=== PATIENT | female | born 1995 | race Caucasian/White ===

== ENCOUNTER 2016-11-17 06:00 | Inpatient (IN) | payer MEDICAID ==
--- NOTE | ~2016-11-17 | HP ---
Unit #: [id number] #: [id number] Patient: CORRIE STEINBERG [id number] [place] [address] [id number] MR#: [id number] NAME: CORRIE STEINBERG. ROOM: P261 Age: 21 Sex: F Admission Date: 11/17/2016 : 1995 Attending Physician: eFlipe Roper M.D. Admitting Physician: Felipe Roper M.D. Primary Care Physician: Primary Care Physician No HISTORY AND PHYSICAL HISTORY OF PRESENT ILLNESS Corrie is a 21 year old admitted to [address] [place] [address] with depression. PAST MEDICAL HISTORY Nothing significant. PAST SURGICAL HISTORY Nothing reported. ALLERGIES No known drug allergies. SOCIAL HISTORY Smokes 1 pack per day. Drinks a pint of liquor 4 to 5 times a month and denies illicit drug use. FAMILY HISTORY Medically noncontributory. REVIEW OF SYSTEMS CONSTITUTIONAL: No fever or chills. HEENT: Denies any sore throat, ear pain or runny nose. CARDIOVASCULAR: Denies chest pain, irregular heart rhythm or palpitations. CHEST: Denies shortness of breath or cough. No hemoptysis. GASTROINTESTINAL: Denies nausea, vomiting, diarrhea or chronic constipation. ENDOCRINE: Denies history of increased thirst or urination. No recent significant weight loss or gain. GENITOURINARY: Denies dysuria, frequency, or hematuria. SKIN: Denies any rashes. HEMATOLOGIC: Denies history of increased bleeding or bruising. MUSCULOSKELETAL: Denies any hot, swollen joints. No generalized muscle pain. NEUROLOGIC: Denies problems with vision or speech. No frequent, severe headaches. No numbness, tingling or weakness in any extremities. Denies loss of bladder or bowel control. CURRENT MEDICATIONS 1. Zoloft 25 mg daily. 2. Nicotine patch 14 mg daily. 3. Melatonin 6 mg q.h.s. p.r.n. 4. Milk of Magnesia p.r.n. 5. Maalox p.r.n. Unit #: [id number] #: [id number] Patient: CORRIE STEINBERG 6. Tylenol p.r.n. PHYSICAL EXAMINATION GENERAL: Alert, well-nourished, no apparent distress. VITAL SIGNS: Blood pressure 100/52, heart rate 80, respirations 16, temperature 98.6. WEIGHT: 103. HEIGHT: 5 feet 2 inches. SKIN: Warm and dry without rash or lesion. HEENT: Normocephalic. TMs not viewed. Oral and nasal passages clear. Conjunctivae clear. PERRLA. EOMs intact. NECK: Supple without lymphadenopathy or thyromegaly. HEART: Regular rate and rhythm without murmur. LUNGS: Clear. ABDOMEN: Soft, nontender. : Not done. EXTREMITIES: No evidence of cyanosis, clubbing or edema. Moves all without focal deficit. NEUROLOGICAL: Grossly within normal limits. Cranial Nerves: II: Visual paredes are intact. III, IV AND : Extraocular movements are intact. Pupils are equal, round and reactive to light. V: Facial sensation is grossly normal. VII: Facial movements and expression are normal. VIII: Auditory acuity grossly intact. IX, X: Uvula is midline. Phonation is normal. XI: Patient shrugs shoulders and turns head normally. XII: Tongue protrudes in the midline. Sensory and Motor Function: Sensory and motor sensation is grossly normal. Motor: moves all extremities well. Coordination: Gait is normal. Deep Tendon Reflexes: Intact. IMPRESSION Psychiatric admission. RECOMMENDATIONS PSYCHIATRIC: Per psychiatrist. MEDICAL: See no contraindications to participate in facility's activities. MEDICAL PROGNOSIS Good. MEDICAL CONDITION Stable. Dictated by... Julee Waggoner P.A.-C. for Norma Sims/ketty TD: 11/18/2016 16:59 JOB #: [id number] Unit #: [id number] #: [id number] Patient: CORRIE STEINBERG HISTORY AND PHYSICAL Page 1 of 1 X Julee Waggoner HISTORY AND PHYSICAL
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
--- NOTE | ~2016-11-17 | DS ---
Unit #: [id number] #: [id number] Patient: CORRIE STEINBERG [id number] [facility] [address] [place] [address] [id number] I MR#: [id number] NAME: CORRIE STEINBERG. ROOM: P261 Age: 21 Sex: F Admission Date: 11/17/2016 : 1995 Discharge Date: 11/22/2016 Attending Physician: Felipe Roper M.D. Primary Care Physician: No Primary Care Physician DISCHARGE SUMMARY ADDENDUM The patient's discharge was postponed secondary to lack of transportation to [place]. Transportation was arranged for the patient on 11/22/2016. Discharge ordered at that time. FOLLOWUP Followup will take place through the auspices of [facility] in the [place], [place] area. Dictated by... Felipe Roper M.D. CB/gz TD: 11/22/2016 14:17 JOB #: [id number] DISCHARGE SUMMARY Page 1 of 1 X Felipe Roper MD X DISCHARGE SUMMARY
--- NOTE | ~2016-11-17 | DS ---
Unit #: [id number] #: [id number] Patient: CORRIE STEINBERG [id number] [facility] [address] [place] [address] [id number] I MR#: [id number] NAME: CORRIE STEINBERG. ROOM: [facility] Age: 21 Sex: F Admission Date: 11/17/2016 : 1995 Discharge Date: Attending Physician: Felipe Roper M.D. Primary Care Physician: Primary Care Physician No DISCHARGE SUMMARY REASON FOR ADMISSION The patient is a 29-year-old white female, admitted in transfer from [facility] where she had presented with voicing suicidal ideation. HOSPITAL COURSE The patient was admitted to the [address] [place] [address] unit and placed on suicide precautions. When seen by this physician on 11/18/2016, the patient was in bright spirits and denied suicidal ideation. She requested discharge from the hospital. She was agreeable to medication change from Paxil to Zoloft given concerns about the potential for defects with paroxetine and a woman of childbearing age. Discharge was ordered as per the patient's request to take place the following day with followup to take place through the auspices of community mental health resources in the [facility]. FINAL DIAGNOSES Major depressive disorder, single episode, moderate. DISPOSITION ON DISCHARGE The patient is discharged on the following medications: Zoloft 25 mg daily for depression. DISCHARGE INSTRUCTIONS No dietary or physical restrictions were placed on the patient at the time of discharge. FOLLOWUP Followup will take place through the auspices of [facility] mental health resources in the [facility]. PROGNOSIS The patient's prognosis is considered good. Dictated by... Felipe Roper M.D. CB/neris TD: 11/18/2016 14:46 JOB #: [id number] Unit #: [id number] #: [id number] Patient: CORRIE STEINBERG DISCHARGE SUMMARY Page 1 of 1 X Felipe Roper MD X DISCHARGE SUMMARY
--- NOTE | ~2016-11-17 | PN ---
Unit #: [id number] #: [id number] Patient: CORRIE STEINBERG [id number] [facility] [address] [place] [address] [id number] I MR#: [id number] NAME: CORRIE STEINBERG. ROOM: 61 Age: 21 Sex: F Admission Date: 11/17/2016 : 1995 Attending Physician: Felipe Roper M.D. Admitting Physician: Felipe Roper M.D. Primary Care Physician: Primary Care Physician Tasneem LEA PROGRESS NOTES DATE 11/20/2016 DISCUSSION The patient is abed resting comfortably. We plan to assist with her return to [place] on Tuesday morning. She is denying suicidal ideation. Dictated by... Felipe Roper M.D. CB/bzg TD: 11/20/2016 12:44 JOB #: [id number] [facility] PROGRESS NOTES Page 1 of 1 X Felipe Roper MD X PROGRESS NOTE
--- NOTE | ~2016-11-17 | PN ---
Unit #: [id number] #: [id number] Patient: CORRIE STEINBERG [id number] [facility] [address] [place] [address] [id number] I MR#: [id number] NAME: CORRIE STEINBERG. ROOM: P261 Age: 21 Sex: F Admission Date: 11/17/2016 : 1995 Attending Physician: Felipe Roper M.D. Admitting Physician: Felipe Roper M.D. Primary Care Physician: Primary Care Physician Tasneem LEA PROGRESS NOTES DATE 11/19/2016 DISCUSSION The patient's transportation back to [place] has been delayed. The patient is reporting some "irritation" at this delayed transportation and is making efforts to obtain transportation from friends in the [place] area though she seems unable to do so thus far. I have encouraged her to make the best of her time in the hospital by participating actively within the therapeutic milieu. She is denying suicidal ideation. Dictated by... Felipe Roper M.D. CB/ketty TD: 11/19/2016 15:44 JOB #: [id number] [facility] PROGRESS NOTES Page 1 of 1 X Felipe Roper MD X PROGRESS NOTE
[2016-11-18 09:59] LABS: BASOPHIL% 0.1 % (0-2.5); EOSINOPHIL# 0.1 X10e3 (0-0.7); EOSINOPHIL% 0.8 % (0.0-7.0); HEMATOCRIT 43.5 % (35.0-45.0); HEMOGLOBIN 14.1 gm/dL (12.0-16.0); LYMPHOCYTE# 1.6 X10e3 (1.0-3.5); LYMPHOCYTE% 25.2 % (17.0-45.0); MEAN CELL VOLUME 89.4 FL (83-96); MEAN CORPUSCULAR HGB CONC 32.4 g/dL (30-36); MEAN PLATELET VOLUME 10.2 FL (6.5-11.5); MONOCYTE# 0.6 X10e3 (0-1.0); MONOCYTE% 8.7 % (3.0-12.0); NEUTROPHIL# 4.2 X10e3 (1.5-7.1); NEUTROPHIL% 65.2 % (40-75); PLATELET COUNT 171 X10e3 (140-420); RED BLOOD COUNT 4.87 X10e (3.90-5.30); RED CELL DISTRIBUTION WIDTH 13.1 % (11.0-15.5); WHITE BLOOD COUNT 6.5 X10e3 (4.0-10.5)
[2016-11-18 10:01] LABS: DIFF IND NO
[2016-11-18 10:05] LABS: ALBUMIN SERUM 4.4 g/dL (3.5-5.0); BUN/CREATININE RATIO 16.66; CALCIUM SERUM 9.2 mg/dL (8.4-10.2); CREATININE SERUM 0.6 mg/dL (0.6-1.4); GLOM FILT RATE Estimated 131.2 mL/min (>60); POTASSIUM 3.4 mmol/L (3.5-5.1); PROTEIN TOTAL SERUM 7.1 g/dL (6.0-8.3)
[2016-11-18 12:10] LABS: AMPHETAMINE NEG (NEG); BARBITURATES NEG (NEG); BENZODIAZEPINES NEG (NEG); COCAINE NEG (NEG); MARIJUANA NEG (NEG); OPIATES NEG (NEG); TRICYCLIC ANTIDEPRESSANTS NEG (NEG); U METHADONE NEG (NEG)
[2016-11-19 09:42] LABS: URINE APPEARANCE TURBID; URINE BLOOD TRACE (NEG); URINE COLOR DK YELLOW; URINE GLUCOSE NEG (NEG); URINE KETONE 3+ (NEG); URINE LEUKOCYTE ESTERASE 2+ (NEG); URINE NITRATE NEG (NEG); URINE PROTEIN 2+ (NEG); URINE SPECIFIC GRAVITY 1.032 (1.003-1.035)
[2016-11-19 09:45] LABS: CULTURE INDICATED? YES; URINE BACTERIA AUWI 3+ (NEGATIVE); URINE SQUAMOUS EPITHELIAL CELL FEW /[HPF]; UWBCS1 AUWI 200-300 (0-5)
[2016-11-19 10:01] LABS: URINE BILIRUBIN NEG (NEG)
[2016-11-19 10:02] LABS: URINE AMORPHOUS SEDIMENT AMORP URATES; URINE MUCUS PRESENT
[2016-11-21 08:38] LABS: CHLAMYDIA TRACH Not Detected (Not Detected); N GONOR Not Detected (Not Detected)
== END 2016-11-22 11:00 | disposition home or self-care (01) | DRG 885 ==
LOC: P2L 21:25
PROVIDERS: Specialist
DX: F32.1 Major depressive disorder, single episode, moderate (principal); F17.210 Nicotine dependence, cigarettes, uncomplicated
CPT/HCPCS: 80053; 80307; 81003; 84703; 85025; 87086; 87491; 87591